=== PATIENT | female | born 1955 | race Caucasian/White ===

== ENCOUNTER 2022-01-29 11:32 | Emergency (ER) | payer OTHER ==
[~2022-01-29] VITALS: Ht 162.6 cm; Wt 75.7 kg
[2022-01-29] MEDS ORDERED: KETOROLAC TROMETHAMINE 60 MG/2 ML VIAL IM ONE (12:30)
[2022-01-29] MEDS ORDERED: HYDROCODONE/APAP 5MG-325MG TAB PO ONE (14:45)
[2022-01-29] MEDS ORDERED: HYDROCODON-ACE1 EA11 PO (15:10)
== END 2022-01-29 15:36 | disposition home or self-care (01) ==
LOC: ER 11:35
DX: S22.32XA Fracture of one rib, left side, initial encounter for closed fracture (principal); W52.XXXA Crushed, pushed or stepped on by crowd or human stampede, initial encounter; Y92.89 Other specified places as the place of occurrence of the external cause; I10 Essential (primary) hypertension; E11.9 Type 2 diabetes mellitus without complications; I50.9 Heart failure, unspecified; E78.00 Pure hypercholesterolemia, unspecified; K21.9 Gastro-esophageal reflux disease without esophagitis
CPT/HCPCS: 70450; 71111; 72125; 99283; J1885